=== PATIENT | female | born 1965 | race Caucasian/White ===

== ENCOUNTER 2016-11-25 17:46 | Emergency (ER) | payer OTHER ==
[~2016-11-25] VITALS: Ht 162.6 cm; Wt 61.2 kg
[2016-11-25] MEDS ORDERED: IV NORMAL SALINE 1000ML BAG 1,000 ML IV SCH (18:03)
[2016-11-25 18:13] LABS: BASO # 0.1 x10^3/uL (0.0-0.2); BASO % 1 % (0-3); EOS % 3 % (0-3); HEMATOCRIT 42.6 % (36.0-47.0); HEMOGLOBIN 14.4 g/dL (12.0-15.5); LYMPH # 2.2 x10^3/uL (1.0-4.8); LYMPH % 27 % (24-48); MEAN CORPUSCULAR HEMOGLOBIN 29 pg (25-35); MEAN CORPUSCULAR HGB CONC 34 g/dL (31-37); MEAN CORPUSCULAR VOLUME 87 fL (79-100); MONO % 7 % (0-9); NEUT % 62 % (31-73); PLATELET COUNT 204 x10^3/uL (140-400)
--- NOTE | 2016-11-25 18:13 | PHYS DOC ---
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 She was eating some chips and chicken with sudden onset of abdominal pain with radiation to the chest the back of the throat described as pressure with shortness of breath. She's had never had symptoms like this before and was concerned this is not like her prior reflux. She has been consistent with her medication and has not missed a dose of her antegrade ablation therapy. She was told by her primary care doctor to come to the September brought immediately to be evaluated get a CT scan of the chest to make sure that the pulmonary infarct that she's had in the past has not become superinfected. At this point and patient denies any cough, fever, or new symptoms no nausea no vomiting diarrhea. She denies any trauma denies any travel outside the country or recent antibiotics. Review of Systems Review of Systems Constitutional: Denies fever or chills [] Eyes: Denies change in visual acuity, redness, or eye pain [] HENT: Denies nasal congestion or sore throat [] Respiratory: Does have shortness of breath with exertion Cardiovascular: No additional information not addressed in HPI [] GI: Denies use of epigastric abdominal pain with no nausea no vomiting no diarrhea or bloody stools no change with food or position. : Denies dysuria or hematuria [] Musculoskeletal: Denies back pain or joint pain [] Integument: Denies rash or skin lesions [] Neurologic: Denies headache, focal weakness or sensory changes [] Endocrine: Denies polyuria or polydipsia [] Current Medications Current Medications Current Medications Medications (Trade) Dose Ordered Sig/Jaquelin Start Time Stop Time Status Last Admin Dose Admin Aspirin (Children'S Aspirin) 324 mg 1X ONCE 11/25/16 18:45 11/25/16 18:46 DC 11/25/16 18:13 324 MG Fentanyl Citrate 50 mcg 50 mcg PRN Q15MIN PRN 11/25/16 18:15 11/26/16 18:14 Info (Do NOT chart on this entry -- for MONITORING) 1 each PRN DAILY PRN 11/25/16 18:45 11/27/16 18:44 Iohexol (Omnipaque 300 Mg/ml) 75 ml 1X ONCE 11/25/16 18:45 11/25/16 18:46 DC 11/25/16 18:35 75 ML Multi-Ingredient Mouthwash/Gargle (Gi Cocktail Single Dose) 15 ml 1X ONCE 11/25/16 18:45 11/25/16 18:46 DC 11/25/16 18:13 15 ML Sodium Chloride (Iv Sodium Chloride 0.9% 1000ml Bag) 1,000 ml @ 1,000 mls/hr Q1H 11/25/16 18:03 11/25/16 19:02 DC 11/25/16 18:13 1,000 MLS/HR Sodium Chloride (Normal Saline Flush) 10 ml QSHIFT PRN 11/25/16 18:15 Allergies Allergies Allergies Coded Allergies Type Severity Reaction Last Updated Verified No Known Drug Allergies 11/25/16 No Physical Exam Physical Exam Constitutional: Well developed, well nourished, no acute distress, non-toxic appearance. [] HENT: Normocephalic, atraumatic, bilateral external ears normal, oropharynx moist, no oral exudates, nose normal. [] Eyes: PERRLA, EOMI, conjunctiva normal, no discharge. [] Neck: Normal range of motion, no tenderness, supple, no stridor. [] Cardiovascular:Heart rate regular rhythm, no murmur [] Lungs & Thorax: Bilateral breath sounds clear to auscultation [] Abdomen: Bowel sounds normal, soft, no tenderness, no masses, no pulsatile masses. [] Skin: Warm, dry, no erythema, no rash. [] Back: No tenderness, no CVA tenderness. [] Extremities: No tenderness, no cyanosis, no clubbing, ROM intact, no edema. [] Neurologic: Alert and oriented X 3, normal motor function, normal sensory function, no focal deficits noted. [] Psychologic: Affect normal, judgement normal, mood normal. [] Current Patient Data Vital Signs Vital Signs Date Time Temp Pulse Resp B/P Pulse Ox O2 Delivery O2 Flow Rate FiO2 11/25/16 18:30 66 17 116/78 97 Room Air 11/25/16 17:53 98.3 98.3 Lab Values Laboratory Tests Test 11/25/16 17:58 White Blood Count 8.0x10^3/uL (4.0-11.0) Red Blood Count 4.90x10^6/uL (3.50-5.40) Hemoglobin 14.4g/dL (12.0-15.5) Hematocrit 42.6% (36.0-47.0) Mean Corpuscular Volume 87fL (79-100) Mean Corpuscular Hemoglobin 29pg (25-35) Mean Corpuscular Hemoglobin Concent 34g/dL (31-37) Red Cell Distribution Width 15.0% (11.5-14.5) H Platelet Count 204x10^3/uL (140-400) Neutrophils (%) (Auto) 62% (31-73) Lymphocytes (%) (Auto) 27% (24-48) Monocytes (%) (Auto) 7% (0-9) Eosinophils (%) (Auto) 3% (0-3) Basophils (%) (Auto) 1% (0-3) Neutrophils # (Auto) 5.0x10^3uL (1.8-7.7) Lymphocytes # (Auto) 2.2x10^3/uL (1.0-4.8) Monocytes # (Auto) 0.5x10^3/uL (0.0-1.1) Eosinophils # (Auto) 0.2x10^3/uL (0.0-0.7) Basophils # (Auto) 0.1x10^3/uL (0.0-0.2) Prothrombin Time 12.8SEC (11.7-14.0) Prothrombin Time INR 1.0 (0.8-1.1) Sodium Level 137mmol/L (136-145) Potassium Level 3.7mmol/L (3.5-5.1) Chloride Level 103mmol/L (98-107) Carbon Dioxide Level 29mmol/L (21-32) Anion Gap 5 (6-14) L Blood Urea Nitrogen 17mg/dL (7-20) Creatinine 0.7mg/dL (0.6-1.0) Estimated GFR (Cockcroft-Gault) 88.2 Glucose Level 69mg/dL (70-99) L Calcium Level 9.6mg/dL (8.5-10.1) Magnesium Level 2.3mg/dL (1.8-2.4) Creatine Kinase 53U/L (26-192) Creatine Kinase MB (Mass) ng/mL (0.0-3.6) Creatine Kinase MB Relative Index % (0-4) Troponin I Quantitative < 0.017ng/mL (0.000-0.055) ZD-Ovi-M-Type Natriuretic Peptide 160pg/mL (0-124) H Lipase 279U/L (73-393) Laboratory Tests 11/25/16 17:58 Laboratory Tests 11/25/16 17:58 EKG EKG [] EKG timed 1756 11/25/2016 chemistries normal sinus rhythm with a heart rate of 73 normal T waves, QRS normal ST segment with no evidence of ischemia. Patient does have overall low voltage Radiology/Procedures Radiology/Procedures [Patient's chest x-ray completed in 1825 date 11/25/2016 demonstrates no cold or acute findings on chest x-ray. Cardec shows within normal limits no pericardial effusion noted no direct infiltrate noted no pneumothorax notedof his air soft tissues looked normal as well as MILTON clavicles ribs and scapula no subdiaphragmatic] Impressions: PROCEDURE Chest CTA HISTORY Chest pain and shortness of air since last night, history of pulmonary embolism, on blood thinner TECHNIQUE After bolus of intravenous contrast, CT imaging was performed of the chest, multiplanar reconstruction images to include MIP reconstruction images submitted. Exposure: One or more of the following individualized dose reduction techniques were utilized for this exam: 1. Automated exposure control. 2. Adjustment of the mA and/or kV according to patient size. 3. Use of iterative reconstruction technique. Contrast: 75 cc Omnipaque 300 COMPARISON None available FINDINGS No pulmonary embolism is identified. Thoracic aortic caliber is within normal limits, no intraluminal flap. There is mild atelectasis of the right lower lobe. Major airways are patent. There is no pneumothorax, pleural fluid, or lobar consolidation. The major airways are patent. There is 1.6 centimeter cyst of the left lobe of the liver. No significant lymphadenopathy is identified of the chest. There is no abnormality of the visualized thyroid gland. There is tiny 3 millimeter left lower lobe pulmonary nodule axial image 126 series 3. There is tiny will 1-2 millimeter nodule right upper lobe axial image 44. IMPRESSION 1. No pulmonary embolism is identified. There is mild atelectasis of the right lower lobe. 2. There are couple tiny pulmonary nodules, largest 3 millimeters. If there are no increased risk factors for neoplasm, no follow-up is needed of these incidental nodules. Twelve month followup could be obtained if increased risk factors for neoplasm. Electronically signed by: Camacho Sue MD (November 25, 2016 18:56:14) DICTATED and SIGNED BY: AJ SUE MD DATE: 11/25/16 7707 CC: KELLY BETH MD; PARISA GRACIA MD ~ Course & Med Decision Making Course & Med Decision Making Pertinent Labs and Imaging studies reviewed. (See chart for details) [Patient is a pleasant 51-year-old female with chest pain history is concerning for the following differential diagnosis. Pneumonia, acute coronary syndrome, myocarditis, cardiac, Esophageal Perforation, Boerhaave Syndrome, pericardial effusion, gallstone pancreatitis, alcohol drinker tenderness pulmonary embolism] Review patient will return to work with which revealed no evidence of cardiac injury, normal white count, CMP normal, lipase normal, d-dimer normal, BMP normal, coags normal. CT images of the chest revealed no PE but there are multiple small pulmonary nodules that will need to be evaluated until month. Dragon Disclaimer Dragon Disclaimer This electronic medical record was generated, in whole or in part, using a voice recognition dictation system. Departure Departure Impression: Primary Impression: Chest pain Additional Impression: GERD (gastroesophageal reflux disease) Disposition: 01 HOME, SELF-CARE Condition: IMPROVED Referrals: PARISA GRACIA MD (PCP) Patient Instructions: Chest Pain (Nonspecific), Gastroesophageal Reflux Disease , Adult Additional Instructions: Is return for any new or increasing symptoms. Please return for any new or increased pain, fever, shortness of breath, or if you have any questions or concerns Scripts Ondansetron (Zofran Odt)4 Mg Tab.rapdis1 Tab SL Q8HRS #15 TAB Prov:KELLY BETH MD 11/25/16 Pantoprazole Sodium (Protonix)20 Mg Tablet.dr1 Tab PO DAILY #30 TAB Prov:KELLY BETH MD 11/25/16 Problem Qualifiers KELLY BETH MD November 25, 2016 18:13
[2016-11-25] MEDS ORDERED: fentaNYL PF VIAL 100 MCG/2 ML VIAL IV PRN (18:15)
[2016-11-25] MEDS ORDERED: 0.9 % SODIUM CHLORIDE 10 ML DISP.SYRIN. IV PRN (18:15)
[2016-11-25 18:20] LABS: PROTHROMBIN TIME PATIENT 12.8 SEC (11.7-14.0)
[2016-11-25 18:23] LABS: CALCIUM 9.6 mg/dL (8.5-10.1); CREATININE 0.7 mg/dL (0.6-1.0); GFR 88.2; POTASSIUM 3.7 mmol/L (3.5-5.1)
[2016-11-25 18:25] LABS: MAGNESIUM 2.3 mg/dL (1.8-2.4)
[2016-11-25 18:30] VITALS: BP 116/78
[2016-11-25 18:37] LABS: CREATINE KINASE 53 U/L (26-192)
[2016-11-25] MEDS ORDERED: CONTRAST GIVEN MC PRN (18:45)
[2016-11-25] MEDS ORDERED: ASPIRIN CHEWABLE 81 MG TABLET. PO ONE (18:45)
[2016-11-25] MEDS ORDERED: IOHEXOL 300 MG/ML 75 ML VIAL IV ONE (18:45)
[2016-11-25] MEDS ORDERED: LIDO:MAALOX:DONNATAL 1:1:1 15 ML SINGLE DOSE SWSW ONE (18:45)
--- NOTE | 2016-11-25 18:58 | RAD ---
PROCEDURE Chest CTA HISTORY Chest pain and shortness of air since last night, history of pulmonary embolism, on blood thinner TECHNIQUE After bolus of intravenous contrast, CT imaging was performed of the chest, multiplanar reconstruction images to include MIP reconstruction images submitted. Exposure: One or more of the following individualized dose reduction techniques were utilized for this exam: 1. Automated exposure control. 2. Adjustment of the mA and/or kV according to patient size. 3. Use of iterative reconstruction technique. Contrast: 75 cc Omnipaque 300 COMPARISON None available FINDINGS No pulmonary embolism is identified. Thoracic aortic caliber is within normal limits, no intraluminal flap. There is mild atelectasis of the right lower lobe. Major airways are patent. There is no pneumothorax, pleural fluid, or lobar consolidation. The major airways are patent. There is 1.6 centimeter cyst of the left lobe of the liver. No significant lymphadenopathy is identified of the chest. There is no abnormality of the visualized thyroid gland. There is tiny 3 millimeter left lower lobe pulmonary nodule axial image 126 series 3. There is tiny will 1-2 millimeter nodule right upper lobe axial image 44. IMPRESSION 1. No pulmonary embolism is identified. There is mild atelectasis of the right lower lobe. 2. There are couple tiny pulmonary nodules, largest 3 millimeters. If there are no increased risk factors for neoplasm, no follow-up is needed of these incidental nodules. Twelve month followup could be obtained if increased risk factors for neoplasm. Electronically signed by: Camacho Hong MD (November 25, 2016 18:56:14)
[2016-11-25] MEDS ORDERED: ONDA4TAB10 SL (19:31)
[2016-11-25] MEDS ORDERED: PANT20TA2 PO (19:31)
--- NOTE | 2016-11-26 06:49 | EKG ---
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
--- NOTE | 2016-11-26 08:16 | RAD ---
Indication epigastric pain. PA and lateral views of the chest were obtained. No prior plain film imaging of the chest is available. The heart and pulmonary vessels appear normal. The lungs are clear. There is no pleural fluid or pneumothorax. Bony structures appear grossly intact. IMPRESSION: No acute or focal process seen in the chest
== END 2016-11-25 19:37 | disposition home or self-care (01) ==
LOC: ER 17:46
DX: R07.89 Other chest pain (principal); K21.9 Gastro-esophageal reflux disease without esophagitis; R06.02 Shortness of breath; Z86.711 Personal history of pulmonary embolism; Z79.82 Long term (current) use of aspirin
CPT/HCPCS: 36415; 71020; 71275; 80048; 82553; 83690; 83735; 83880; 84484; 85027; 85610; 93005; 96360; 99285; J7030; Q9967